=== PATIENT | female | born 1975 | race Caucasian/White ===

== ENCOUNTER 2017-05-10 07:48 | Outpatient (CLI) | payer OTHER ==
[~2017-05-10 07:48] MED LIST: DOLOGEN CAPLET1 TAB PO; PROTONIX40 MG PO; SEPTRA DS TABLE1 TAB PO
== END 2017-05-10 10:23 | disposition home or self-care (01) ==
LOC: MRI 07:48
DX: M79.641 Pain in right hand (principal)
CPT/HCPCS: 73221

== ENCOUNTER 2017-11-25 01:50 | Emergency (ER) | payer OTHER ==
[~2017-11-25] VITALS: Ht 165.1 cm; Wt 62.6 kg
[2017-11-25] MEDS ORDERED: SYNTHROID88 MCG (02:05)
== END 2017-11-25 11:09 | disposition home or self-care (01) ==
LOC: ER 01:50
DX: R10.13 Epigastric pain (principal)

== ENCOUNTER → 2019-05-24 | Emergency (ER) | payer OTHER ==
[~2019-05-24] VITALS: Ht 165.1 cm; Wt 62.6 kg
[~2019-05-24] MED LIST changes: +SYNTHROID88 MCG
== END | disposition left against medical advice (07) ==
LOC: ER 00:38
DX: Z53.20 Procedure and treatment not carried out because of patient's decision for unspecified reasons (principal)

== ENCOUNTER 2019-11-18 10:34 | Emergency (ER) | payer OTHER ==
[~2019-11-18] VITALS: Ht 165.1 cm; Wt 62.1 kg
[2019-11-18] MEDS ORDERED: ADDERALL 15 MG15 MG PO (10:42)
== END 2019-11-18 16:16 | disposition home or self-care (01) ==
LOC: ER 10:34
DX: R10.31 Right lower quadrant pain (principal); Z20.828 Contact with and (suspected) exposure to other viral communicable diseases